=== PATIENT | male | born 1985 | race Caucasian/White ===

== ENCOUNTER 2021-03-16 21:27 | Emergency (ER) | payer BC ==
[2021-03-16] MEDS ORDERED: AUGMENTIN 875-1 EAC1 PO (23:18)
[2021-03-16 23:34] VITALS: BP 139/92
== END 2021-03-16 23:35 | disposition home or self-care (01) ==
LOC: ED 21:27
DX: S01.81XA Laceration without foreign body of other part of head, initial encounter (principal); S01.111A Laceration without foreign body of right eyelid and periocular area, initial encounter; Z23 Encounter for immunization; W54.0XXA Bitten by dog, initial encounter
CPT/HCPCS: 90715